=== PATIENT | female | born 1945 | race American Indian/Alaskan Native ===

== ENCOUNTER 2018-12-13 14:02 | Inpatient (IN) | payer MEDICARE ==
--- NOTE | 2018-12-13 14:38 | Event Note ---
ED Screening Note ED Screening Note: pt presents with generalized abd pain that began two months +constipation, had a very small BM today difficulty swallowing for two months saw GI and they want to have a EGD/colonscopy PMHx DM, HTN, COPD, PAD This initial assessment/diagnostic orders/clinical plan/treatment(s) is/are subject to change based on patients health status, clinical progression and re- assessment by fellow clinical providers in the ED. Further treatment and workup at subsequent clinical providers discretion. Patient/guardian urged not to elope from the ED as their condition may be serious if not clinically assessed and managed. Initial orders include: labs, XR abd, UA
--- NOTE | 2018-12-13 15:11 | XRay Report ---
ABDOMEN FLAT AND UPRIGHT HISTORY: constipation, generalized abd pain COMPARISON: None. TECHNIQUE: Supine and upright radiographs of the abdomen obtained. FINDINGS: Bowel: Nonobstructive bowel pattern. No abnormal air-fluid level. No free intraperitoneal air. Calcifications: No significant abnormal calcifications. Osseous Structures: No significant osseous abnormality. Additional findings: Pelvic phleboliths. Bilateral femoral artery stents. IMPRESSION: 1. No acute abnormality. Signer Name: Albert Lincoln MD Signed: 12/13/2018 3:07 PM Workstation Name: [id number]
[2018-12-13 15:52] LABS: Basophils # (Auto) 0.1 K/mm3 (0.0-0.1); Basophils % (Auto) 0.8 % (0.0-1.8); Eosinophils # (Auto) 0.1 K/mm3 (0.0-0.4); Eosinophils % (Auto) 0.9 % (0.0-4.3); Hematocrit 43.4 % (30.3-42.9); Hemoglobin 14.4 gm/dl (10.1-14.3); Lymphocytes # (Auto) 2.8 K/mm3 (1.2-5.4); Lymphocytes % (Auto) 29.3 % (13.4-35.0); Mean Corpuscular HGB Conc 33 % (30-34); Mean Corpuscular Volume 84 fl (79-97); Monocytes # (Auto) 0.5 K/mm3 (0.0-0.8); Monocytes % (Auto) 5.6 % (0.0-7.3); Platelet Count 180 K/mm3 (140-440); Red Blood Count 5.14 M/mm3 (3.65-5.03); Red Cell Distribution Width 13.6 % (13.2-15.2)
[2018-12-13 16:16] LABS: Alanine Aminotransferase 16 units/L (7-56); Albumin 3.5 g/dL (3.9-5); BUN/Creatinine Ratio 10; Blood Urea Nitrogen 9 mg/dL (7-17); Calcium 9.3 mg/dL (8.4-10.2); Hemolysis Index 4
[2018-12-13] MEDS ORDERED: K-DUR PO ONE (17:12)
--- NOTE | 2018-12-13 17:16 | Emergency Department Report ---
ED Abdominal Pain HPI - General Chief Complaint: Abdominal Pain Stated Complaint: ABDOMINAL PAIN/VOMITING Time Seen by Provider: 12/13/18 14:34 Source: patient Mode of arrival: Ambulatory Limitations: No Limitations - History of Present Illness Initial Comments: Patient is 73 years old female, presented to the ER complaining of diffuse abdominal pain for the last 2 month. Patient accompanied by her daughter who is giving most of the history. She stated that her mother lost approximately 35 pounds in the last few weeks. She stated that she is having difficulty in swallowing and she has significant history of nausea and vomiting. Patient daughter stated that she has an appointment with Dr. Alvares. Patient stated that the last time she had a bowel movement was 7 days ago. Patient denied any fever or chills. No chest pain or shortness of breath. MD Complaint: abdominal pain -: month(s) Location: diffuse Radiation: none Migration to: no migration Severity: moderate Quality: cramping, fullness - Related Data Allergies Allergy/AdvReac Type Severity Reaction Status Date / Time No Known Allergies Allergy Verified 12/13/18 18:21 ED Review of Systems ROS: Stated complaint: ABDOMINAL PAIN/VOMITING Other details as noted in HPI Comment: All other systems reviewed and negative Constitutional: denies: chills, fever Respiratory: denies: cough, shortness of breath, SOB with exertion Cardiovascular: denies: chest pain, palpitations Gastrointestinal: abdominal pain, nausea, vomiting, constipation. denies: diarrhea, hematemesis, melena, hematochezia Genitourinary: denies: urgency, dysuria Neurological: denies: headache, weakness, numbness, paresthesias, confusion ED Past Medical Hx - Past Medical History Previous Medical History?: Yes Hx Hypertension: Yes Hx Diabetes: Yes Hx Deep Vein Thrombosis: Yes Hx COPD: Yes Additional medical history: cyst on kidney. TIA - Surgical History Past Surgical History?: Yes Additional Surgical History: stents placed in leg - Social History Smoking Status: Never Smoker Substance Use Type: None ED Physical Exam - General Limitations: No Limitations General appearance: alert, in no apparent distress - Head Head exam: Present: atraumatic, normocephalic, normal inspection - Eye Eye exam: Present: normal appearance, PERRL - ENT ENT exam: Present: normal exam, normal orophraynx, mucous membranes moist - Neck Neck exam: Present: normal inspection, full ROM. Absent: tenderness, meningismus, lymphadenopathy, thyromegaly - Respiratory Respiratory exam: Present: normal lung sounds bilaterally - Cardiovascular Cardiovascular Exam: Present: regular rate, normal rhythm, normal heart sounds - GI/Abdominal GI/Abdominal exam: Present: soft, tenderness (diffuse tenderness), normal bowel sounds. Absent: distended, guarding, rebound, rigid, organomegaly, mass, bruit, pulsatile mass, hernia - Extremities Exam Extremities exam: Present: normal inspection, full ROM, normal capillary refill - Back Exam Back exam: Present: normal inspection, full ROM. Absent: tenderness, CVA tenderness (R), CVA tenderness (L), muscle spasm, paraspinal tenderness, vertebral tenderness - Neurological Exam Neurological exam: Present: alert, oriented X3, CN II-XII intact, normal gait - Psychiatric Psychiatric exam: Present: normal mood - Skin Skin exam: Present: warm, intact, normal color ED Course Vital Signs 12/13/18 12/13/18 12/13/18 14:33 17:06 18:45 Temperature 98.4 F Pulse Rate 82 74 74 Respiratory 20 16 16 Rate Blood Pressure 95/56 Blood Pressure 168/61 208/96 [Left] O2 Sat by Pulse 100 97 96 Oximetry 12/13/18 19:04 Temperature Pulse Rate 67 Respiratory Rate Blood Pressure 211/80 Blood Pressure [Left] O2 Sat by Pulse Oximetry ED Medical Decision Making - Lab Data Result diagrams: 12/13/18 15:31 12/13/18 15:31 - Radiology Data Radiology results: report reviewed - Medical Decision Making Patient is 73 years old female, presented to the ER complaining of diffuse abdominal pain for the last 2 month. Patient accompanied by her daughter who is giving most of the history. She stated that her mother lost approximately 35 pounds in the last few weeks. She stated that she is having difficulty in swallowing and she has significant history of nausea and vomiting. Patient daughter stated that she has an appointment with Dr. Alvares. Patient stated that the last time she had a bowel movement was 7 days ago. Patient denied any fever or chills. No chest pain or shortness of breath. Patient found to be hypokalemic with a potassium of 2.6. Rest of the labs are unremarkable. CT abdomen and pelvis is unremarkable for acute finding. I discussed the patient is Dr. Kennedy who advised to admit the patient to the hospital for possible upper GI endoscopy in the morning. I discussed the patient is Dr. Murphy, he agreed to admit the patient to medical service. Critical care attestation.: If time is entered above; I have spent that time in minutes in the direct care of this critically ill patient, excluding procedure time. ED Disposition Clinical Impression: Abdominal pain, Vomiting, Dysphagia, Hypokalemia, UTI (urinary tract infection) Disposition: OP ADMIT IP TO THIS HOSP Is pt being admited?: Yes Condition: Stable Instructions: Abdominal Pain (ED) Referrals: DRAGAN PAPPSA MD [Primary Care Provider] - 3-5 Days
[2018-12-13 17:24] LABS: Amorphous Crystals,Urine Few; Bilirubin,Urine NEG (Negative); Blood,Urine SM (Negative); Color,Urine Yellow (Yellow); Protein,Urine <15 mg/dL mg/dL (Negative); Urobilinogen,Urine < 2.0 mg/dL (<2.0)
[2018-12-13] MEDS: KCL 10MEQ/100ML 10 MEQ/100 ML BAG IV SCH ×2 (18:20→21:20)
[2018-12-13] MEDS ORDERED: APRESOLINE IV ONE (18:55)
[2018-12-13] MEDS ORDERED: NACL 0.9% 250ML 250 ML ONE (19:31)
[2018-12-13] MEDS ORDERED: NACL 0.9% 250ML 250 ML IV ONE (19:35)
--- NOTE | 2018-12-13 20:12 | Cat Scan Report ---
CT ABDOMEN AND PELVIS WITH IV CONTRAST INDICATION: Abdominal pain, nausea and vomiting. COMPARISON: No prior CTs. TECHNIQUE: All CT scans at this facility use dose modulation, automated exposure control, iterative reconstructi on or weight based dosing, when appropriate, to reduce radiation dose to as low as reasonably achieva ble. FINDINGS: Lung Bases: Clear. Skeletal System: No acute abnormality. Degenerative changes are noted within the pelvis and througho ut the lower thoracic and lumbar spine. ABDOMEN: Liver: There is a punctate hypodensity in the lateral right hepatic lobe on axial image 25. This is t oo small to characterize but likely a cyst. The liver is otherwise unremarkable. Gallbladder: Sludge and small stones are seen in the gallbladder fundus. The gallbladder is otherwise unremarkable. Bile Ducts: Normal. Pancreas: Normal. Spleen: There are several peripheral hypodensities in the spleen, some of these are somewhat wedge-sh aped. These may be small chronic infarcts. Adrenals: Normal. Right Kidney: The right kidney is markedly atrophic. This appears chronic. Left Kidney: There is a simple cyst in the medial posterior cortex. There appears to be mild compensa tory hypertrophy of the left kidney. There are a few punctate cortical cysts of the upper and lower p oles. Stomach and Bowel: Normal. Lymph Nodes: No significant adenopathy. Aorta: There is advanced atherosclerotic calcification. Additional Findings: Advanced atherosclerotic calcification is seen within the renal and mesenteric a rterial trees. PELVIS: Colon: Normal aside from minimal right-sided diverticulosis. Urinary Bladder and Distal Ureters: Normal. Appendix: Removed. Lymph Nodes: No significant adenopathy. Additional Findings: Advanced atherosclerotic calcification is seen in the bilateral common and exter nal iliac arteries. IMPRESSION: 1. No acute process in the abdomen or pelvis. 2. Incidental findings, as above. Signer Name: Samuel Fajardo MD Signed: 12/13/2018 8:07 PM Workstation Name: [id number]
[2018-12-13] MEDS ORDERED: ROCEPHIN/NS 1 GM/50 ML 1 GM/50 ML BAG IV ONE (20:14)
[2018-12-13] MEDS ORDERED: ZOFRAN IV ONE (20:27)
[2018-12-13] MEDS ORDERED: MORPHINE IV PRN (22:34)
[2018-12-13] MEDS ORDERED: SODIUM CHLORIDE FLUSH SYRINGE 10 ML IV PRN (22:34)
[2018-12-13] MEDS ORDERED: TYLENOL PO PRN (22:34)
[2018-12-13] MEDS ORDERED: ZOFRAN IV PRN (22:34)
[2018-12-13] MEDS ORDERED: DILAUDID IV PRN (22:35)
[2018-12-13] MEDS ORDERED: FLEET PR ONE (22:56)
[2018-12-13] MEDS ORDERED: NACL 0.9% 1000 ML 1,000 ML IV SCH (23:00)
[2018-12-14] MEDS ORDERED: D50W (25GM) Syringe IV PRN (00:08)
[2018-12-14] MEDS ORDERED: ZOFRAN ONE (00:23)
--- NOTE | 2018-12-14 00:24 | Event Note ---
Date: 12/14/18 73F who pw abdominal pain x 2 months, 35 pounds weight loss, anorexia, dysphagia, and n/v for past few days, she is also c/o constipation, last BM was 7 days ago PMH; htn, dm, hx of dvt, copd, kidney cyst, TIA, hx of PAD sp stent in LE CT abdomen and pelvis; No acute process in the abdomen or pelvis. * GI; anorexia, dysphagia; unintentional weight loss, N/v, abdominal pain; pain meds, anti-emetics, GI to see, NPO for EGD in am, SS consult * UTI; iv abx, fup urine cx * severe hypokalemia, cont IV k in fluids, check mg * htn urgency, clonidine patch, hyradralazine iv prn * DM; SSI * copd, chronic and stable, cont home meds, nebs prn
[2018-12-14] MEDS ORDERED: PROVENTIL IH PRN (00:25)
[2018-12-14] MEDS: APRESOLINE IV PRN (00:56)
[2018-12-14] MEDS ORDERED: REGLAN IV PRN (01:03)
[2018-12-14] MEDS ORDERED: ZOFRAN IV PRN (01:04)
--- NOTE | 2018-12-14 01:05 | History and Physical Report ---
History of Present Illness Date of examination: 12/13/18 Date of admission: 12/13/2018 Chief complaint: Constipation and abdominal pain History of present illness: 73 -year-old -[place] female with history of hypertension, diabetes 2, COPD, chronic constipation who presents to [facility] ED with c/o of diffuse abdominal pain and intermittent constipation for the last 2 months. She also complains of difficulty swallowing, nausea and vomiting. Patient stated that the last time she had a bowel movement was 7 days. Her bowel movements are very small. She describes it as "small pieces of stool". She admits to having a poor appetite. According to patient's daughter her mother has lost approximately 35 pounds in the last 2 months. Patient daughter stated her mother has an appointment with Dr. Alvares ([facility]) scheduled for sometime in late January. Denies: Fever, dysuria, hematuria, cough, diarrhea, hematochezia, or hemoptysis Past History Past Medical History: CAD, diabetes, DVT (on Eliquis ), hypertension Past Surgical History: Other (stents placed in leg) Social history: lives with family Family history: no significant family history Medications and Allergies Allergies Allergy/AdvReac Type Severity Reaction Status Date / Time No Known Allergies Allergy Verified 12/13/18 18:21 Home Medications Medication Instructions Recorded Confirmed Last Taken Type Docusate Sodium [Colace] 100 mg PO DAILY PRN 12/13/18 12/13/18 Unknown History Fluticasone/Vilanterol [Breo 1 each IH DAILY 12/13/18 12/13/18 Unknown History Ellipta 100-25 Mcg INH] Furosemide [Lasix TAB] 40 mg PO QDAY 12/13/18 12/13/18 Unknown History Gabapentin [Neurontin] 300 mg PO TID 12/13/18 12/13/18 Unknown History Metoprolol Strange/Hydrochlorothiaz 1 each PO DAILY 12/13/18 12/13/18 Unknown History [Metoprolol ER-Hctz 50-12.5 mg] Montelukast Sodium 10 mg PO DAILY 12/13/18 12/13/18 Unknown History Pantoprazole Sodium [Protonix] 40 mg PO DAILY 12/13/18 12/13/18 Unknown History Symbicort 160-4.5 Mcg Inhaler 160 mcg INHALATION BID 12/13/18 12/14/18 Unknown History cloNIDine-TTS PATCH [Catapres-Tts 1 patch TD Q7D 12/13/18 12/13/18 Unknown History 0.2mg Patch] glipiZIDE [Glucotrol] 10 mg PO QDAY 12/13/18 12/13/18 Unknown History Albuterol Sulfate [Proair 90 mcg INHALATION Q4HR PRN 12/14/18 12/14/18 Unknown History Respiclick] Amitriptyline [Elavil] 50 mg PO HS 12/14/18 12/14/18 Unknown History Apixaban [Eliquis] 2.5 mg PO DAILY 12/14/18 12/14/18 Unknown History Arformoterol Nebu [Brovana Nebu] 15 mcg INHALATION BID 12/14/18 12/14/18 Unknown History AtorvaSTATin [Lipitor] 20 mg PO DAILY 12/14/18 12/14/18 Unknown History amLODIPine [Norvasc] 10 mg PO DAILY 12/14/18 12/14/18 Unknown History Active Meds: Active Medications Acetaminophen (Tylenol) 650 mg PO Q4H PRN PRN Reason: Pain MILD(1-3)/Fever >100.5/TURK Albuterol (Proventil) 2.5 mg IH Q4HRT PRN PRN Reason: Shortness Of Breath Arformoterol Tartrate (Brovana Nebu) 15 mcg IH Q12HRT MEGAN Budesonide (Pulmicort) 0.5 mg IH Q12HRT MEGAN Clonidine HCl (Catapres-Tts Patch) 0.2 mg TD Fr MEGAN Dextrose (D50w (25gm) Syringe) 50 ml IV PRN PRN PRN Reason: Hypoglycemia Enoxaparin Sodium (Lovenox) 40 mg SUB-Q QDAY MEGAN Hydralazine HCl (Apresoline) 10 mg IV Q4HR PRN PRN Reason: BP >160/100 Last Admin: 12/14/18 00:56 Dose: 10 mg Documented by: Hydromorphone HCl (Dilaudid) 0.5 mg IV Q3H PRN PRN Reason: Pain , Severe (7-10) Stop: 12/14/18 23:59 Last Admin: 12/14/18 00:41 Dose: 0.5 mg Documented by: Potassium Chloride 20 meq/ (Sodium Chloride) 1,010 mls @ 75 mls/hr IV DIRECT MEGAN Stop: 12/14/18 12:00 Ceftriaxone Sodium (Rocephin/Ns 1 Gm/50 Ml) 1 gm in 50 mls @ 100 mls/hr IV Q24HR MEGAN; Protocol Insulin Human Lispro (Humalog) 0 unit SUB-Q Q6HR MEGAN; Protocol Morphine Sulfate (Morphine) 2 mg IV Q4H PRN PRN Reason: Pain, Moderate (4-6) Stop: 12/14/18 23:59 Ondansetron HCl (Zofran) 4 mg IV Q8H PRN PRN Reason: Nausea And Vomiting Last Admin: 12/14/18 00:30 Dose: 4 mg Documented by: Sodium Chloride (Sodium Chloride Flush Syringe 10 Ml) 10 ml IV BID MEGAN Sodium Chloride (Sodium Chloride Flush Syringe 10 Ml) 10 ml IV PRN PRN PRN Reason: LINE FLUSH Review of Systems All systems: negative (reviewed and no additional remarkable complaints except as noted below) Gastrointestinal: abdominal pain, constipation Exam - Physical Exam Narrative exam: Physical exam General appearance: Present: No acute distress, alert and oriented 3, well- developed, -[place] older adult female - EENT Eyes: Present: PERRL, EOM intact ENT: hearing intact, poor dentition - Neck Neck: Present: supple, normal ROM - Respiratory Respiratory effort: Non-labored Respiratory: bilateral: diminished (bases) - Cardiovascular Heart rate: 82 (bpm) Rhythm: SR Heart Sounds: Present: S1 & S2. Absent: rub, click - Extremities Extremities: no ischemia, pulses intact, - Peripheral Assessment Peripheral Pulses: within normal limits - Abdominal General gastrointestinal: soft, mild diffuse tenderness, normal bowel sounds - Integumentary Integumentary: Present: warm, dry - Musculoskeletal Musculoskeletal: generalized weakness -Neurological Neurological: CN II-XII - Psychiatric Psychiatric: cooperative - Constitutional Vitals: Temp Pulse Resp BP Pulse Ox 97.5 F L 97 H 20 186/79 99 12/14/18 00:39 12/13/18 23:00 12/14/18 00:39 12/14/18 00:56 12/14/18 00:00 Results - Labs CBC & Chem 7: 12/13/18 15:31 12/13/18 15:31 Labs: Laboratory Last Values WBC 9.5 K/mm3 (4.5-11.0) 12/13/18 15:31 RBC 5.14 M/mm3 (3.65-5.03) H 12/13/18 15:31 Hgb 14.4 gm/dl (10.1-14.3) H 12/13/18 15:31 Hct 43.4 % (30.3-42.9) H 12/13/18 15:31 MCV 84 fl (79-97) 12/13/18 15:31 MCH 28 pg (28-32) 12/13/18 15:31 MCHC 33 % (30-34) 12/13/18 15:31 RDW 13.6 % (13.2-15.2) 12/13/18 15:31 Plt Count 180 K/mm3 (140-440) 12/13/18 15:31 Lymph % (Auto) 29.3 % (13.4-35.0) 12/13/18 15:31 Dixie % (Auto) 5.6 % (0.0-7.3) 12/13/18 15: Eos % (Auto) 0.9 % (0.0-4.3) 12/13/18 15:31 Baso % (Auto) 0.8 % (0.0-1.8) 12/13/18 15: Lymph # 2.8 K/mm3 (1.2-5.4) 12/13/18 15: Dixie # 0.5 K/mm3 (0.0-0.8) 12/13/18 15:31 Eos # 0.1 K/mm3 (0.0-0.4) 12/13/18 15: Baso # 0.1 K/mm3 (0.0-0.1) 12/13/18 15:31 Seg Neutrophils % 63.4 % (40.0-70.0) 12/13/18 15: Seg Neutrophils # 6.0 K/mm3 (1.8-7.7) 12/13/18 15:31 Sodium 141 mmol/L (137-145) 12/13/18 15:31 Potassium 2.6 mmol/L (3.6-5.0) L* 12/13/18 15:31 Chloride 95.1 mmol/L (98-107) L 12/13/18 15:31 Carbon Dioxide 32 mmol/L (22-30) H 12/13/18 15:31 17 mmol/L 12/13/18 15:31 BUN 9 mg/dL (7-17) 12/13/18 15:31 0.9 mg/dL (0.7-1.2) 12/13/18 15:31 Estimated GFR > 60 ml/min 12/13/18 15:31 10 % 12/13/18 15:31 Glucose 128 mg/dL (65-100) H 12/13/18 15:31 Calcium 9.3 mg/dL (8.4-10.2) 12/13/18 15:31 Magnesium 2.00 mg/dL (1.7-2.3) 12/13/18 15:31 0.90 mg/dL (0.1-1.2) 12/13/18 15:31 AST 26 units/L (5-40) 12/13/18 15:31 ALT 16 units/L (7-56) 12/13/18 15:31 128 units/L (35-129) 12/13/18 15:31 7.5 g/dL (6.3-8.2) 12/13/18 15:31 3.5 g/dL (3.9-5) L 12/13/18 15:31 0.9 % 12/13/18 15:31 34 units/L (13-60) 12/13/18 15:31 Yellow (Yellow) 12/13/18 17:01 Cloudy (Clear) 12/13/18 17:01 7.0 (5.0-7.0) 12/13/18 17:01 Ur Specific Dobbins 1.009 (1.003-1.030) 12/13/18 17:01 <15 mg/dl mg/dL (Negative) 12/13/18 17:01 Neg mg/dL (Negative) 12/13/18 17:01 Neg mg/dL (Negative) 12/13/18 17:01 Sm (Negative) 12/13/18 17:01 Neg (Negative) 12/13/18 17:01 Neg (Negative) 12/13/18 17:01 < 2.0 mg/dL (<2.0) 12/13/18 17:01 Ur Leukocyte Esterase Lg (Negative) 12/13/18 17:01 128.0 /HPF (0.0-6.0) H 12/13/18 17:01 11.0 /HPF (0.0-6.0) 12/13/18 17:01 U Epithel Cells (Auto) 10.0 /HPF (0-13.0) 12/13/18 17:01 Amorphous Crystals Few 12/13/18 17:01 - Imaging and Cardiology Imaging and Cardiology: CT Abd/ Pelvis: ABDOMEN: Liver: There is a punctate hypodensity in the lateral right hepatic lobe on axial image 25. This is too small to characterize but likely a cyst. The liver is otherwise unremarkable. Gallbladder: Sludge and small stones are seen in the gallbladder fundus. The gallbladder is otherwise unremarkable. Bile Ducts: Normal. Pancreas: Normal. Spleen: There are several peripheral hypodensities in the spleen, some of these are somewhat wedge-shaped. These may be small chronic infarcts. Adrenals: Normal. Right Kidney: The right kidney is markedly atrophic. This appears chronic. Left Kidney: There is a simple cyst in the medial posterior cortex. There appears to be mild compensatory hypertrophy o f the left kidney. There are a few punctate cortical cysts of the upper and lower poles. Stomach and Bowel: Normal. Lymph Nodes: No significant adenopathy. Aorta: There is advanced atherosclerotic calcification. Additional Findings: Advanced atherosclerotic calcification is seen within the renal and mesenteric arterial trees. PELVIS: Colon: Normal aside from minimal right-sided diverticulosis. Urinary Bladder and Distal Ureters: Normal. Appendix: Removed. Lymph Nodes: No significant adenopathy. Additional Findings: Advanced atherosclerotic calcification is seen in the bilateral common and external iliac arteries. IMPRESSION: 1. No acute process in the abdomen or pelvis. 2. Incidental findings, as above. Abd XR: FINDINGS: Bowel: Nonobstructive bowel pattern. No abnormal air-fluid level. No free intraperitoneal air. Calcifications: No significant abnormal calcifications. Osseous Structures: No significant osseous abnormality. Additional findings: Pelvic phleboliths. Bilateral femoral artery stents. IMPRESSION: 1. No acute abnormality. Assessment and Plan Assessment and plan: 73 -year-old -[place] female with history of hypertension, diabetes 2, COPD, chronic constipation who presents to [facility] ED with c/o of diffuse abdominal pain and intermittent constipation for the last [address] abdomen and pelvis revealed punctate hypodensity in the lateral right hepatic lobe, several peripheral hypodensities in the spleen, some of these are somewhat wedge-shaped, right kidney is markedly atrophic, advanced atherosclerotic calcification is seen within the renal and mesenteric arterial trees. GI consulted. Will admit to [facility] unit for further evaluation and treatment. Urinary tract infection Acute Abdominal Pain Chronic Constipation Hypokalemia Hypertension DM2 COPD ?? Dysphasia Plan: Continue supportive care Continuous remote telemetry monitoring Nothing by mouth Ordered Fleet enema GI consulted and following with plans for EGD in am Urine culture pending Urinalysis shows urine WBC 128 Start 1 g every 24 hours Monitor electrolytes, and replete as needed Hypokalemic at 2.6; received potassium replacement, continue to monitor POC BG monitoring SSI coverge Monitor BP Resume clonidine patch Hold all oral antihypertensive meds, resume when pt is no longer NPO Hold Eliquis for now- resume post EDG Albuterol when necessary Resume Brovana Speech consult pending post EDG DVT PPX on lovenox Advance Directives: No VTE prophylaxis?: Chemical Plan of care discussed with patient/family: Yes
[2018-12-14] MEDS: NACL 0.9% 1000 ML 1,000 ML with KCL 20 MEQ IV SCH ×2 (01:10→02:28)
[2018-12-14] MEDS: CATAPRES-TTS PATCH TD SCH (04:26)
[2018-12-14] MEDS: HumaLOG SUB-Q SCH ×2 (06:38→12:00)
[2018-12-14 08:33] LABS: BUN/Creatinine Ratio 10; Blood Urea Nitrogen 7 mg/dL (7-17); Calcium 9.4 mg/dL (8.4-10.2); Hemolysis Index 5
--- NOTE | 2018-12-14 09:53 | Gastroenterology Consultation ---
History of Present Illness - Reason for Consult Consult date: 12/14/18 dysphagia Requesting physician: DINO MORLEY - History of Present Illness Patient is a 73 y/o female with PMH of HTN, DM, COPD, DVT (on eliquis), TID, and PAD (s/p stent in LE) who presented to ED with multiple GI complaints to include diffuse abd pain, constipation, N/V, dysphagia, and significant wt loss of ~40 since October of this year to which GI has been consulted. Abd CT w/o acute proce ss. Currently being treated for UTI. Patient is previously known to our service with last OV 11/30/18 for similar symptoms with outpatient EGD/colonoscopy pending cardiac clearance, which was obtained by Dr. Mckenna on 12/07/18. This morning patient was resting in bed in mild distress due to continued N/V. No active signs of bleeding. Denies fever, CP, SOB, or diarrhea. Last colonoscopy in 2016 unremarkable. Past History Past Medical History: other (as per HPI) Past Surgical History: Other (stents placed in leg) Social history: lives with family Family history: no significant family history Medications and Allergies Allergies Allergy/AdvReac Type Severity Reaction Status Date / Time No Known Allergies Allergy Verified 12/13/18 18:21 Home Medications Medication Instructions Recorded Confirmed Last Taken Type Docusate Sodium [Colace] 100 mg PO DAILY PRN 12/13/18 12/13/18 Unknown History Fluticasone/Vilanterol [Breo 1 each IH DAILY 12/13/18 12/13/18 Unknown History Ellipta 100-25 Mcg INH] Furosemide [Lasix TAB] 40 mg PO QDAY 12/13/18 12/13/18 Unknown History Gabapentin [Neurontin] 300 mg PO TID 12/13/18 12/13/18 Unknown History Metoprolol Strange/Hydrochlorothiaz 1 each PO DAILY 12/13/18 12/13/18 Unknown History [Metoprolol ER-Hctz 50-12.5 mg] Montelukast Sodium 10 mg PO DAILY 12/13/18 12/13/18 Unknown History Pantoprazole Sodium [Protonix] 40 mg PO DAILY 12/13/18 12/13/18 Unknown History Symbicort 160-4.5 Mcg Inhaler 160 mcg INHALATION BID 12/13/18 12/14/18 Unknown History cloNIDine-TTS PATCH [Catapres-Tts 1 patch TD Q7D 12/13/18 12/13/18 Unknown History 0.2mg Patch] glipiZIDE [Glucotrol] 10 mg PO QDAY 12/13/18 12/13/18 Unknown History Albuterol Sulfate [Proair 90 mcg INHALATION Q4HR PRN 12/14/18 12/14/18 Unknown History Respiclick] Amitriptyline [Elavil] 50 mg PO HS 12/14/18 12/14/18 Unknown History Apixaban [Eliquis] 2.5 mg PO DAILY 12/14/18 12/14/18 Unknown History Arformoterol Nebu [Brovana Nebu] 15 mcg INHALATION BID 12/14/18 12/14/18 Unknown History AtorvaSTATin [Lipitor] 20 mg PO DAILY 12/14/18 12/14/18 Unknown History amLODIPine [Norvasc] 10 mg PO DAILY 12/14/18 12/14/18 Unknown History Active Meds: Active Medications Acetaminophen (Tylenol) 650 mg PO Q4H PRN PRN Reason: Pain MILD(1-3)/Fever >100.5/TURK Albuterol (Proventil) 2.5 mg IH Q4HRT PRN PRN Reason: Shortness Of Breath Arformoterol Tartrate (Brovana Nebu) 15 mcg IH Q12HRT MEGAN Budesonide (Pulmicort) 0.5 mg IH Q12HRT MEGAN Clonidine HCl (Catapres-Tts Patch) 0.2 mg TD Fr [facility] Last Admin: 12/14/18 04:26 Dose: Not Given Documented by: Dextrose (D50w (25gm) Syringe) 50 ml IV PRN PRN PRN Reason: Hypoglycemia Enoxaparin Sodium (Lovenox) 40 mg SUB-Q QDAY MEGAN Hydralazine HCl (Apresoline) 10 mg IV Q4HR PRN PRN Reason: BP >160/100 Last Admin: 12/14/18 00:56 Dose: 10 mg Documented by: Hydromorphone HCl (Dilaudid) 0.5 mg IV Q3H PRN PRN Reason: Pain , Severe (7-10) Stop: 12/14/18 23:59 Last Admin: 12/14/18 00:41 Dose: 0.5 mg Documented by: Potassium Chloride 20 meq/ (Sodium Chloride) 1,010 mls @ 75 mls/hr IV DIRECT MEGAN Stop: 12/14/18 12:00 Last Admin: 12/14/18 02:28 Dose: 75 mls/hr Documented by: Ceftriaxone Sodium (Rocephin/Ns 1 Gm/50 Ml) 1 gm in 50 mls @ 100 mls/hr IV Q24HR [facility]; Protocol Potassium Chloride (Kcl 20meq/100ml) 20 meq in 100 mls @ 100 mls/hr IV Q1H [facility] Stop: 12/14/18 11:59 Insulin Human Lispro (Humalog) 0 unit SUB-Q Q6HR MEGAN; Protocol Last Admin: 12/14/18 06:38 Dose: 1 unit Documented by: Metoclopramide HCl (Reglan) 10 mg IV Q6H PRN PRN Reason: Nausea And Vomiting Last Admin: 12/14/18 02:29 Dose: 10 mg Documented by: Morphine Sulfate (Morphine) 2 mg IV Q4H PRN PRN Reason: Pain, Moderate (4-6) Stop: 12/14/18 23:59 Ondansetron HCl (Zofran) 4 mg IV Q4H PRN PRN Reason: Nausea And Vomiting Pantoprazole Sodium (Protonix) 40 mg IV QDAY [facility] Sodium Chloride (Sodium Chloride Flush Syringe 10 Ml) 10 ml IV BID [facility] Sodium Chloride (Sodium Chloride Flush Syringe 10 Ml) 10 ml IV PRN PRN PRN Reason: LINE FLUSH medications reviewed/updated as required Review of Systems - Review of Systems All systems: negative Constitutional: weight loss, poor appetite Gastrointestinal: abdominal pain, nausea, vomiting, constipation, other (dys phagia) Exam - Constitutional Vital Signs: Temp Pulse Resp BP Pulse Ox 98.4 F 102 H 18 187/76 96 12/14/18 07:48 12/14/18 07:48 12/14/18 07:48 12/14/18 07:48 12/14/18 07:48 General appearance: no acute distress, obese - EENT Eyes: PERRL, EOM intact ENT: hearing intact - Respiratory Respiratory effort: normal Respiratory: bilateral: diminished - Cardiovascular Rhythm: other (tachycardia) - Gastrointestinal General gastrointestinal: Present: soft, non-tender, non-distended, normal bowel sounds, other (obese) - Neurologic Neurological: alert and oriented x3 - Labs CBC & Chem 7: 12/13/18 15:31 12/14/18 08:00 Lab Results: Laboratory Results - last 24 hr 12/13/18 12/13/18 12/13/18 15:31 15:31 15:31 WBC 9.5 RBC 5.14 H Hgb 14.4 H Hct 43.4 H MCV 84 MCH 28 MCHC 33 RDW 13.6 Plt Count 180 Lymph % (Auto) 29.3 [place] % (Auto) 5.6 Eos % (Auto) 0.9 Baso % (Auto) 0.8 Lymph # 2.8 [place] # 0.5 Eos # 0.1 Baso # 0.1 Seg Neutrophils % 63.4 Seg Neutrophils # 6.0 Sodium 141 Potassium 2.6 L* Chloride 95.1 L Carbon Dioxide 32 H Anion Gap 17 BUN 9 Creatinine 0.9 Estimated GFR > 60 BUN/Creatinine Ratio 10 Glucose 128 H POC Glucose Hemoglobin A1c Calcium 9.3 Magnesium 2.00 Total Bilirubin 0.90 AST 26 ALT 16 Alkaline Phosphatase 128 Total Protein 7.5 Albumin 3.5 L Albumin/Globulin Ratio 0.9 Lipase 34 Urine Color Urine Turbidity Urine pH Ur Specific [place] Urine Protein Urine Glucose (UA) Urine Ketones Urine Blood Urine Nitrite Urine Bilirubin Urine Urobilinogen Ur Leukocyte Esterase Urine WBC (Auto) Urine RBC (Auto) U Epithel Cells (Auto) Amorphous Crystals 12/13/18 12/14/18 12/14/18 17:01 05:01 06:41 WBC RBC Hgb Hct MCV MCH MCHC RDW Plt Count Lymph % (Auto) [place] % (Auto) Eos % (Auto) Baso % (Auto) Lymph # [place] # Eos # Baso # Seg Neutrophils % Seg Neutrophils # Sodium Potassium Chloride Carbon Dioxide Anion Gap BUN Creatinine Estimated GFR BUN/Creatinine Ratio Glucose POC Glucose 166 H Hemoglobin A1c 7.1 H Calcium Magnesium Total Bilirubin AST ALT Alkaline Phosphatase Total Protein Albumin Albumin/Globulin Ratio Lipase Urine Color Yellow Urine Turbidity Cloudy Urine pH 7.0 Ur Specific [place] 1.009 Urine Protein <15 mg/dl Urine Glucose (UA) Neg Urine Ketones Neg Urine Blood Sm Urine Nitrite Neg Urine Bilirubin Neg Urine Urobilinogen < 2.0 Ur Leukocyte Esterase Lg Urine WBC (Auto) 128.0 H Urine RBC (Auto) 11.0 U Epithel Cells (Auto) 10.0 Amorphous Crystals Few 12/14/18 08:00 WBC RBC Hgb Hct MCV MCH MCHC RDW Plt Count Lymph % (Auto) [place] % (Auto) Eos % (Auto) Baso % (Auto) Lymph # [place] # Eos # Baso # Seg Neutrophils % Seg Neutrophils # Sodium 143 Potassium 3.1 L Chloride 99.2 Carbon Dioxide 26 Anion Gap 21 BUN 7 Creatinine 0.7 Estimated GFR > 60 BUN/Creatinine Ratio 10 Glucose 174 H POC Glucose Hemoglobin A1c Calcium 9.4 Magnesium Total Bilirubin AST ALT Alkaline Phosphatase Total Protein Albumin Albumin/Globulin Ratio Lipase Urine Color Urine Turbidity Urine pH Ur Specific [place] Urine Protein Urine Glucose (UA) Urine Ketones Urine Blood Urine Nitrite Urine Bilirubin Urine Urobilinogen Ur Leukocyte Esterase Urine WBC (Auto) Urine RBC (Auto) U Epithel Cells (Auto) Amorphous Crystals Assessment and Plan 1.dysphagia 2.N/V 3.wt loss 4.abdominal pain 5.constipation -afebrile -WBC WNL -LFTs and lipase WNL -abd CT w/o acute process in abdomen/pelvis -etiology unclear -will schedule for EGD/colonoscopy tomorrow for further evaluation (cardiac shawanda arance by client support professional Dr. Mckenna given as outpatient on 12/07/18) -okay for clears today as tolerated then NPO after MN -okay to place NGT as needed to help facilitate with completion of colon prep given N/V -hold am dose of lovenox -INR in am -optimize glycemic control; limit narcotics for this may exacerbate symptoms -continue PPI, antiemetics, and supportive care -will follow 6.HTN 7.UTI 8.hypokalemia 9.DM 10.COPD 11.H/O TIA 12H/o DVT (Eliquis on hold) 12.H/o PAD (s/p stent)
[2018-12-14] MEDS ORDERED: KCL 20MEQ/100ML 20 MEQ/100 ML BAG IV SCH (10:00)
[2018-12-14] MEDS ORDERED: PROTONIX IV SCH (10:00)
[2018-12-14] MEDS ORDERED: NON-FORMULARY (Fluticasone/Vilanterol [Breo Ellipta 100-25 Mcg Inh] 1 EACH) IH SCH (10:00)
[2018-12-14] MEDS: LOVENOX SUB-Q SCH (10:49)
[2018-12-14] MEDS: ROCEPHIN/NS 1 GM/50 ML 1 GM/50 ML BAG IV SCH (10:50)
[2018-12-14] MEDS ORDERED: KCL 10MEQ/100ML 10 MEQ/100 ML BAG IV SCH (11:00)
[2018-12-14] MEDS ORDERED: K-DUR PO ONE (11:42)
[2018-12-14] MEDS: REGLAN IV SCH ×2 (12:18→20:33)
[2018-12-14] MEDS: SODIUM CHLORIDE FLUSH SYRINGE 10 ML IV SCH ×2 (12:32→22:41)
[2018-12-14] MEDS ORDERED: GOLYTELY PO ONE (12:45)
--- NOTE | 2018-12-14 13:02 | Progress Note ---
Assessment and Plan Assessment and plan: 73 -year-old -Hung[place] female with history of hypertension, diabetes 2, COPD, chronic constipation who presents to [facility] ED with c/o of diffuse abdominal pain and intermittent constipation for the last [address] abdomen and pelvis revealed punctate hypodensity in the lateral right hepatic lobe, several peripheral hypodensities in the spleen, some of these are somewhat wedge-shaped, right kidney is markedly atrophic, advanced atherosclerotic calcification is seen within the renal and mesenteric arterial trees. GI consulted. Will admit to [facility] unit for further evaluation and treatment. Urinary tract infection - patient is on IV ceftriaxone - follow urine culture Acute Abdominal Pain, with persistent N/V - GI consulted, and EGD tomorrow - CT abdomen and pelvis negative - To be on clear liquid diet Chronic Constipation - Symptomatic management Hypokalemia - Repleted Hypertension - Continue clonidine patch DM2 - SSI COPD - Albuterol PRN and brivana DVT prophylaxis; on lovenox Disposition; continue inpatient care. History Interval history: Patient seen and evaluated this morning, patient said she still has nausea and vomiting. Hospitalist Physical - Physical exam Narrative exam: Not in cardiopulmonary distress. The patient is obese. Vital signs as documented. Head exam is unremarkable. No scleral icterus . Neck is without jugular venous distension, thyromegaly, or carotid bruits. Lungs are clear to auscultation. Cardiac exam reveals regular rate and Rhythm. Abdominal exam reveals normal bowel sounds. Extremities are nonedematous and both femoral and pedal pulses are normal. [place] MATE: Alert and oriented 3. No focal weakness. - Constitutional Vitals: Temp Pulse Resp BP Pulse Ox 98.4 F 102 H 18 187/76 96 12/14/18 07:48 12/14/18 07:48 12/14/18 07:48 12/14/18 07:48 12/14/18 07:48 Results - Labs CBC & Chem 7: 12/13/18 15:31 12/14/18 08:00 Labs: Laboratory Last Values WBC 9.5 K/mm3 (4.5-11.0) 12/13/18 15:31 RBC 5.14 M/mm3 (3.65-5.03) H 12/13/18 15:31 Hgb 14.4 gm/dl (10.1-14.3) H 12/13/18 15:31 Hct 43.4 % (30.3-42.9) H 12/13/18 15:31 MCV 84 fl (79-97) 12/13/18 15: MCH 28 pg (28-32) 12/13/18 15:31 MCHC 33 % (30-34) 12/13/18 15:31 RDW 13.6 % (13.2-15.2) 12/13/18 15: Plt Count 180 K/mm3 (140-440) 12/13/18 15: Lymph % (Auto) 29.3 % (13.4-35.0) 12/13/18 15:31 [place] % (Auto) 5.6 % (0.0-7.3) 12/13/18 15: Eos % (Auto) 0.9 % (0.0-4.3) 12/13/18 15: Baso % (Auto) 0.8 % (0.0-1.8) 12/13/18 15: Lymph # 2.8 K/mm3 (1.2-5.4) 12/13/18 15: [place] # 0.5 K/mm3 (0.0-0.8) 12/13/18 15: Eos # 0.1 K/mm3 (0.0-0.4) 12/13/18 15: Baso # 0.1 K/mm3 (0.0-0.1) 12/13/18 15:31 Seg Neutrophils % 63.4 % (40.0-70.0) 12/13/18 15: Seg Neutrophils # 6.0 K/mm3 (1.8-7.7) 12/13/18 15: Sodium 143 mmol/L (137-145) 12/14/18 08:00 Potassium 3.1 mmol/L (3.6-5.0) L 12/14/18 08:00 Chloride 99.2 mmol/L (98-107) 12/14/18 08:00 Carbon Dioxide 26 mmol/L (22-30) 12/14/18 08:00 21 mmol/L 12/14/18 08:00 BUN 7 mg/dL (7-17) 12/14/18 08:00 0.7 mg/dL (0.7-1.2) 12/14/18 08:00 Estimated GFR > 60 ml/min 12/14/18 08:00 10 % 12/14/18 08:00 Glucose 174 mg/dL (65-100) H 12/14/18 08:00 POC Glucose 154 (70-105) H 12/14/18 11:39 7.1 % (4-6) H 12/14/18 05:01 Calcium 9.4 mg/dL (8.4-10.2) 12/14/18 08:00 Magnesium 2.00 mg/dL (1.7-2.3) 12/13/18 15:31 0.90 mg/dL (0.1-1.2) 12/13/18 15:31 AST 26 units/L (5-40) 12/13/18 15:31 ALT 16 units/L (7-56) 12/13/18 15:31 128 units/L (35-129) 12/13/18 15:31 7.5 g/dL (6.3-8.2) 12/13/18 15:31 3.5 g/dL (3.9-5) L 12/13/18 15:31 0.9 % 12/13/18 15:31 34 units/L (13-60) 12/13/18 15:31 Yellow (Yellow) 12/13/18 17:01 Cloudy (Clear) 12/13/18 17:01 7.0 (5.0-7.0) 12/13/18 17:01 Ur Specific [place] 1.009 (1.003-1.030) 12/13/18 17:01 <15 mg/dl mg/dL (Negative) 12/13/18 17:01 Neg mg/dL (Negative) 12/13/18 17:01 Neg mg/dL (Negative) 12/13/18 17:01 Sm (Negative) 12/13/18 17:01 Neg (Negative) 12/13/18 17:01 Neg (Negative) 12/13/18 17:01 < 2.0 mg/dL (<2.0) 12/13/18 17:01 Ur Leukocyte Esterase Lg (Negative) 12/13/18 17:01 128.0 /HPF (0.0-6.0) H 12/13/18 17:01 11.0 /HPF (0.0-6.0) 12/13/18 17:01 U Epithel Cells (Auto) 10.0 /HPF (0-13.0) 12/13/18 17:01 Amorphous Crystals Few 12/13/18 17:01 Active Medications - Current Medications Current Medications: Generic Name Dose Route Start Last Admin Trade Name Freq PRN Reason Stop Dose Admin Acetaminophen 650 mg 12/13/18 22:34 Tylenol PO Q4H PRN Pain MILD(1-3)/Fever >100.5/TURK Albuterol 2.5 mg 12/14/18 00:25 Proventil IH Q4HRT PRN Shortness Of Breath Arformoterol Tartrate 15 mcg 12/14/18 08:00 Brovana Nebu IH Q12HRT MEGAN Budesonide 0.5 mg 12/14/18 08:00 Pulmicort IH Q12HRT MEGAN Clonidine HCl 0.2 mg 12/14/18 01:00 12/14/18 04:26 Catapres-Tts Patch TD Not Given Fr MEGAN Dextrose 50 ml 12/14/18 00:08 D50w (25gm) Syringe IV PRN PRN Hypoglycemia Enoxaparin Sodium 40 mg 12/14/18 10:00 12/14/18 10:49 Lovenox SUB-Q 40 mg QDAY MEGAN Administration Hydralazine HCl 10 mg 12/14/18 00:08 12/14/18 00:56 Apresoline IV 10 mg Q4HR PRN Administration BP >160/100 Hydromorphone HCl 0.5 mg 12/13/18 22:35 12/14/18 00:41 Dilaudid IV 12/14/18 23:59 0.5 mg Q3H PRN Administration Pain , Severe (7-10) Ceftriaxone Sodium 1 gm in 50 mls @ 100 mls/hr 12/14/18 10:00 12/14/18 10:50 Rocephin/Ns 1 Gm/50 Ml IV 100 mls/hr Q24HR MEGAN Administration Protocol Insulin Human Lispro 0 unit 12/14/18 06:00 12/14/18 06:38 Humalog SUB-Q 1 unit Q6HR MEGAN Administration Protocol Metoclopramide HCl 10 mg 12/14/18 01:03 12/14/18 02:29 Reglan IV 10 mg Q6H PRN Administration Nausea And Vomiting Metoclopramide HCl 10 mg 12/14/18 12:00 12/14/18 12:18 Reglan IV 10 mg Q6H MEGAN Administration Morphine Sulfate 2 mg 12/13/18 22:34 Morphine IV 12/14/18 23:59 Q4H PRN Pain, Moderate (4-6) Ondansetron HCl 4 mg 12/14/18 01:04 Zofran IV Q4H PRN Nausea And Vomiting Pantoprazole Sodium 40 mg 12/14/18 10:00 Protonix IV QDAY MEGAN Sodium Chloride 10 ml 12/14/18 10:00 12/14/18 12:32 Sodium Chloride Flush Syringe 10 Ml IV 10 ml BID MEGAN Administration Sodium Chloride 10 ml 12/13/18 22:34 Sodium Chloride Flush Syringe 10 Ml IV PRN PRN LINE FLUSH
[2018-12-14] MEDS: PROTONIX PO SCH (18:00)
--- NOTE | 2018-12-14 19:40 | XRay Report ---
ABDOMEN 1 VIEW(S) INDICATION / CLINICAL INFORMATION: ngt placement verification. COMPARISON: 12/13/2018 FINDINGS: TUBES / LINES: Enteric feeding tube is present. The tip is within the stomach and appears to be in sa tisfactory position. BOWEL GAS PATTERN: Not well seen on this radiograph. FREE AIR / EXTRALUMINAL GAS: None seen. ADDITIONAL FINDINGS: No significant additional findings. IMPRESSION: 1. Interval placement of enteric feeding tube within the stomach, without complication. Signer Name: Ana Monge MD Signed: 12/14/2018 7:36 PM Workstation Name: [email or web address]
[2018-12-14] MEDS: PULMICORT IH SCH ×2 (19:41→20:07)
[2018-12-14] MEDS: BROVANA NEBU IH SCH ×2 (19:41→20:07)
[2018-12-15] MEDS: HumaLOG SUB-Q SCH ×3 (00:31→14:32)
[2018-12-15] MEDS: REGLAN IV SCH ×4 (03:36→19:09)
[2018-12-15] MEDS: APRESOLINE IV PRN ×2 (03:42→20:40)
[2018-12-15 05:40] LABS: Basophils # (Auto) 0.1 K/mm3 (0.0-0.1); Basophils % (Auto) 0.5 % (0.0-1.8); Eosinophils % (Auto) 0.1 % (0.0-4.3); Hematocrit 44.9 % (30.3-42.9); Hemoglobin 14.7 gm/dl (10.1-14.3); Lymphocytes # (Auto) 3.4 K/mm3 (1.2-5.4); Lymphocytes % (Auto) 29.3 % (13.4-35.0); Mean Corpuscular HGB Conc 33 % (30-34); Mean Corpuscular Volume 83 fl (79-97); Monocytes # (Auto) 0.8 K/mm3 (0.0-0.8); Monocytes % (Auto) 6.7 % (0.0-7.3); Platelet Count 185 K/mm3 (140-440); Red Blood Count 5.39 M/mm3 (3.65-5.03); Red Cell Distribution Width 13.9 % (13.2-15.2)
[2018-12-15 05:47] LABS: INR 1.16 (0.87-1.13)
[2018-12-15 05:55] LABS: BUN/Creatinine Ratio 7; Blood Urea Nitrogen 4 mg/dL (7-17); Calcium 9.2 mg/dL (8.4-10.2); Hemolysis Index 5
[2018-12-15] MEDS ORDERED: WATER FOR IRRIG STERILE IR ONE (06:32)
[2018-12-15] MEDS ORDERED: WATER FOR IRRIG STERILE ONE (06:34)
[2018-12-15] MEDS ORDERED: K-DUR PO ONE (06:58)
[2018-12-15] MEDS ORDERED: NACL 0.9% 1000 ML 1,000 ML IV SCH (07:30)
[2018-12-15] MEDS: K-DUR PO SCH ×2 (08:10→09:45)
[2018-12-15] MEDS: PULMICORT IH SCH ×2 (08:31→20:13)
[2018-12-15] MEDS: BROVANA NEBU IH SCH ×2 (08:31→20:13)
[2018-12-15] MEDS ORDERED: NS/KCL 40MEQ 40 MEQ/1,000 ML BAG IV SCH (09:00)
[2018-12-15] MEDS: PROTONIX PO SCH (09:32)
[2018-12-15] MEDS: LOVENOX SUB-Q SCH (09:32)
[2018-12-15] MEDS: SODIUM CHLORIDE FLUSH SYRINGE 10 ML IV SCH ×2 (09:43→20:40)
--- NOTE | 2018-12-15 11:51 | Progress Note ---
Assessment and Plan Assessment and plan: 73 -year-old -[place] female with history of hypertension, diabetes 2, COPD, chronic constipation who presents to [facility] ED with c/o of diffuse abdominal pain and intermittent constipation for the last [address] abdomen and pelvis revealed punctate hypodensity in the lateral right hepatic lobe, several peripheral hypodensities in the spleen, some of these are somewhat wedge-shaped, right kidney is markedly atrophic, advanced atherosclerotic calcification is seen within the renal and mesenteric arterial trees. GI consulted. Will admit to [facility]ZA unit for further evaluation and treatment. Urinary tract infection - patient is on IV ceftriaxone - follow urine culture Acute Abdominal Pain, with persistent N/V - GI consulted, and EGD today, will follow the results - CT abdomen and pelvis negative - To be on clear liquid diet Chronic Constipation - Symptomatic management Hypokalemia - Repleted Hypertension - Continue clonidine patch DM2 - SSI COPD - Albuterol PRN and brivana DVT prophylaxis; on lovenox Disposition; per clinical course History Interval history: Patient seen and evaluated this morning, patient said she still has nausea and vomiting. Hospitalist Physical - Physical exam Narrative exam: Not in cardiopulmonary distress. The patient is obese. Vital signs as documented. Head exam is unremarkable. No scleral icterus . Neck is without jugular venous distension, thyromegaly, or carotid bruits. Lungs are clear to auscultation. Cardiac exam reveals regular rate and Rhythm. Abdominal exam reveals normal bowel sounds. Extremities are nonedematous and both femoral and pedal pulses are normal. 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 No focal weakness. - Constitutional Vitals: Temp Pulse Resp BP Pulse Ox 98.3 F 97 H 18 171/85 96 12/15/18 07:49 12/15/18 09:00 12/15/18 09:00 12/15/18 07:49 12/15/18 07:49 Results - Labs CBC & Chem 7: 12/15/18 05:14 12/15/18 10:50 Labs: Laboratory Last Values WBC 11.6 K/mm3 (4.5-11.0) H 12/15/18 05:14 RBC 5.39 M/mm3 (3.65-5.03) H 12/15/18 05:14 Hgb 14.7 gm/dl (10.1-14.3) H 12/15/18 05:14 Hct 44.9 % (30.3-42.9) H 12/15/18 05:14 MCV 83 fl (79-97) 12/15/18 05:14 MCH 27 pg (28-32) L 12/15/18 05:14 MCHC 33 % (30-34) 12/15/18 05:14 RDW 13.9 % (13.2-15.2) 12/15/18 05:14 Plt Count 185 K/mm3 (140-440) 12/15/18 05:14 Lymph % (Auto) 29.3 % (13.4-35.0) 12/15/18 05:14 [place] % (Auto) 6.7 % (0.0-7.3) 12/15/18 05:14 Eos % (Auto) 0.1 % (0.0-4.3) 12/15/18 05:14 Baso % (Auto) 0.5 % (0.0-1.8) 12/15/18 05:14 Lymph # 3.4 K/mm3 (1.2-5.4) 12/15/18 05:14 [place] # 0.8 K/mm3 (0.0-0.8) 12/15/18 05:14 Eos # 0.0 K/mm3 (0.0-0.4) 12/15/18 05:14 Baso # 0.1 K/mm3 (0.0-0.1) 12/15/18 05:14 Seg Neutrophils % 63.4 % (40.0-70.0) 12/15/18 05:14 Seg Neutrophils # 7.4 K/mm3 (1.8-7.7) 12/15/18 05:14 PT 14.5 Sec. (12.2-14.9) 12/15/18 05:14 INR 1.16 (0.87-1.13) H 12/15/18 05:14 Sodium 141 mmol/L (137-145) 12/15/18 05:14 Potassium 3.4 mmol/L (3.6-5.0) L D 12/15/18 10:50 Chloride 97.6 mmol/L (98-107) L 12/15/18 05:14 Carbon Dioxide 26 mmol/L (22-30) 12/15/18 05:14 20 mmol/L 12/15/18 05:14 BUN 4 mg/dL (7-17) L 12/15/18 05:14 0.6 mg/dL (0.7-1.2) L 12/15/18 05:14 Estimated GFR > 60 ml/min 12/15/18 05:14 7 % 12/15/18 05:14 Glucose 136 mg/dL (65-100) H 12/15/18 05:14 POC Glucose 130 (70-105) H 12/15/18 06:38 7.1 % (4-6) H 12/14/18 05:01 Calcium 9.2 mg/dL (8.4-10.2) 12/15/18 05:14 Magnesium 1.80 mg/dL (1.7-2.3) 12/15/18 05:14 0.90 mg/dL (0.1-1.2) 12/13/18 15:31 AST 26 units/L (5-40) 12/13/18 15:31 ALT 16 units/L (7-56) 12/13/18 15:31 128 units/L (35-129) 12/13/18 15:31 7.5 g/dL (6.3-8.2) 12/13/18 15:31 3.5 g/dL (3.9-5) L 12/13/18 15:31 0.9 % 12/13/18 15:31 34 units/L (13-60) 12/13/18 15:31 Yellow (Yellow) 12/13/18 17:01 Cloudy (Clear) 12/13/18 17:01 7.0 (5.0-7.0) 12/13/18 17:01 Ur Specific [place] 1.009 (1.003-1.030) 12/13/18 17:01 <15 mg/dl mg/dL (Negative) 12/13/18 17:01 Neg mg/dL (Negative) 12/13/18 17:01 Neg mg/dL (Negative) 12/13/18 17:01 Sm (Negative) 12/13/18 17:01 Neg (Negative) 12/13/18 17:01 Neg (Negative) 12/13/18 17:01 < 2.0 mg/dL (<2.0) 12/13/18 17:01 Ur Leukocyte Esterase Lg (Negative) 12/13/18 17:01 128.0 /HPF (0.0-6.0) H 12/13/18 17:01 11.0 /HPF (0.0-6.0) 12/13/18 17:01 U Epithel Cells (Auto) 10.0 /HPF (0-13.0) 12/13/18 17:01 Amorphous Crystals Few 12/13/18 17:01 Active Medications - Current Medications Current Medications: Generic Name Dose Route Start Last Admin Trade Name Freq PRN Reason Stop Dose Admin Acetaminophen 650 mg 12/13/18 22:34 Tylenol PO Q4H PRN Pain MILD(1-3)/Fever >100.5/TURK Albuterol 2.5 mg 12/14/18 00:25 Proventil IH Q4HRT PRN Shortness Of Breath Arformoterol Tartrate 15 mcg 12/14/18 08:00 12/15/18 08:31 Brovana Nebu IH 15 mcg Q12HRT MEGAN Administration Budesonide 0.5 mg 12/14/18 08:00 12/15/18 08:31 Pulmicort IH 0.5 mg Q12HRT MEGAN Administration Clonidine HCl 0.2 mg 12/14/18 01:00 12/14/18 04:26 Catapres-Tts Patch TD Not Given Fr MEGAN Dextrose 50 ml 12/14/18 00:08 D50w (25gm) Syringe IV PRN PRN Hypoglycemia Enoxaparin Sodium 40 mg 12/14/18 10:00 12/15/18 09:32 Lovenox SUB-Q 40 mg QDAY MEGAN Administration Hydralazine HCl 10 mg 12/14/18 00:08 12/15/18 03:42 Apresoline IV 10 mg Q4HR PRN Administration BP >160/100 Ceftriaxone Sodium 1 gm in 50 mls @ 100 mls/hr 12/14/18 10:00 12/14/18 10:50 Rocephin/Ns 1 Gm/50 Ml IV 100 mls/hr Q24HR MEGAN Administration Protocol Sodium Chloride 1,000 mls @ 50 mls/hr 12/15/18 07:30 Nacl 0.9% 1000 Ml IV DIRECT MEGAN Potassium Chloride/Sodium Chloride 40 meq in 1,000 mls @ 250 mls/hr 12/15/18 09:00 12/15/18 09:33 Ns/Kcl 40meq IV 250 mls/hr DIRECT MEGAN Administration Insulin Human Lispro 0 unit 12/14/18 06:00 12/15/18 06:44 Humalog SUB-Q Not Given Q6HR [facility] Protocol Metoclopramide HCl 10 mg 12/14/18 01:03 12/14/18 02:29 Reglan IV 10 mg Q6H PRN Administration Nausea And Vomiting Metoclopramide HCl 10 mg 12/14/18 12:00 12/15/18 08:13 Reglan IV 10 mg Q6H MEGAN Administration Ondansetron HCl 4 mg 12/14/18 01:04 Zofran IV Q4H PRN Nausea And Vomiting Pantoprazole Sodium 40 mg 12/14/18 18:00 12/15/18 09:32 Protonix PO 40 mg QDAY MEGAN Administration Sodium Chloride 10 ml 12/14/18 10:00 12/15/18 09:43 Sodium Chloride Flush Syringe 10 Ml IV 10 ml BID MEGAN Administration Sodium Chloride 10 ml 12/13/18 22:34 Sodium Chloride Flush Syringe 10 Ml IV PRN PRN LINE FLUSH Nutrition/Malnutrition Assess - Dietary Evaluation Nutrition/Malnutrition Findings: Nutrition Notes Start: 12/14/18 20:51 Freq: Status: Active Protocol: Document 12/14/18 20:51 RM (Rec: 12/14/18 21:01 [email or web address]) Nutrition Notes Need for Assessment generated from: MST Initial or Follow up Assessment Current Diagnosis COPD,Diabetes,Hypertension Other Pertinent Diagnosis TIA,UTI, Dysphagia, Dysphasia Current Diet Clear liquid Labs/Tests A1c 7.1 Pertinent Medications Reviewed Height 5 ft 6 in Weight 90.8 kg Usual Body Weight 106 kg [place] Body Weight (kg) 59.09 BMI 32.3 Weight change and time frame 14.3% wt loss X 1 1/2 months Subjective/Other Information Screened for malnutrition, chewing difficulty, and skin risk. [place] [address] earlier for endoscopy. Clear liquid diet ordered later today. 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 Admitted to N/V. Stated that she has only eaten jello here. Denied chewing difficulty. Stated UBW was 234 lbs in October. No temporal or orbital wasting . 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 No Is Patient Ambulatory and/or Out of Bed No REE-([facility]-confined to bed) 1727.520 Kcal/Kg value to use for calculation 16 Approximate Energy Requirements Using 1453 kcal/Kg Calculation Used for Recommendations Kcal/kg Additional Notes Protein Needs: 75-90g (1-1.2g/ kg 75kg adjBW) Fluid Needs: 1 ml/kcal Nutrition Intervention Change Diet Order: Advance diet when medically able Add Supplement/Snack (indicate name/kcal Ensure clear 1 daily /protein ) Provides kCal: 240 Provides Protein (gm) 8 Goal #1 Diet advancement Anticipated Discharge Needs: Unable to determine at this time Follow-Up By: 12/18/18 Additional Comments Follow for diet advancement, PO and ONS intakes
--- NOTE | 2018-12-15 12:23 | Anesthesia Day of Surgery ---
Anesthesia Day of Surgery - Day of Surgery Patient Examined: Yes Patient H&P Reviewed: Yes Patient is NPO: Yes
--- NOTE | 2018-12-15 12:23 | Anesthesia Consultation ---
Anesthesia Consult and Med Hx Date of service: 12/15/18 - Airway Anesthetic Teeth Evaluation: Edentulous ROM Head & Neck: Adequate Mental/Hyoid Distance: Adequate Mallampati Class: Class III Intubation Access Assessment: Possibly Difficult - Pulmonary Exam CTA: Yes - Cardiac Exam Cardiac Exam: RRR - Pre-Operative Health Status ASA Pre-Surgery Classification: ASA3 Proposed Anesthetic Plan: MAC - Pulmonary Hx Asthma: Yes COPD: Yes Home Oxygen Therapy: Yes (2L home O2 at night and with exertion) - Cardiovascular System Hx Hypertension: Yes Hx Heart Attack/AMI: No Hx Percutaneous Transluminal Coronary Angioplasty (PTCA): No Hx Cardia Arrhythmia: No Hx Peripheral Vascular Disease: Yes (PAD) - Central Nervous System CVA: Yes (hx TIA) Hx Back Pain: Yes - Gastrointestinal Hx Gastroesophageal Reflux Disease: No - Endocrine Hx Renal Disease: No Hx Liver Disease: No Hx Insulin Dependent Diabetes: Yes Hx Thyroid Disease: No - Hematic Hx Anemia: Yes - Other Systems Hx Obesity: Yes - Additional Comments Anesthesia Medical History Comments: No hx anesthetic complications.
--- NOTE | 2018-12-15 12:26 | Post Operative Note ---
Pre-op diagnosis: nausea, abdominal pain, weight loss Post-op diagnosis: same Findings: EGD: hiatal hernia - multiple ulcers (6-9 mm) scattered stomach body (bx's) - gastritis (bx's) - mild duodenitis (bx's) Colon: mild diverticulosis -random bx's - internal hemorrhoids Plan: f/u bx's - PPI qd, Carafate susp qid - advance diet - if stable in am ok to dc/ from GI standpoint Procedure: EGD/colonoscopy Anesthesia: MAC Surgeon: EARNESTINE GAMINO Estimated blood loss: none Pathology: list Specimen disposition: to lab Condition: stable Disposition: floor
[2018-12-15] MEDS ORDERED: NACL 0.9% 1000 ML 1,000 ML ONE (12:47)
--- NOTE | 2018-12-15 13:46 | Operative Report ---
PROCEDURE: Colonoscopy with cold biopsies. INDICATIONS: 1. Abdominal pain. 2. Weight loss. MEDICATIONS: Propofol per AFTER SCHOOL COORDINATOR. COMPLICATIONS: None. DESCRIPTION OF PROCEDURE: The patient brought to procedure suite. The patient had the procedure discussed with her at length. All risks, complications, and benefits discussed, which the patient signed for the procedure to be performed. The patient was placed in left lateral decubitus position. Rectal exam performed prior to insertion of the scope. After adequate sedation medication as above, scope was inserted into the rectum and brought to the level of the cecum. Ileocecal valve, appendiceal orifice and cecal strap were adequately visualized. Colonoscope was then removed and mucosa of colon visualized. Prep quality for this procedure was fair. The patient's vital signs remained stable throughout the procedure. FINDINGS: There were no mass, lesions or polyps noted during this procedure. There are few ascending colon and sigmoid diverticula noted, which were small to medium in size. Retroflexion was performed in the rectum, showed small internal hemorrhoids. Random biopsies given change in bowel habits were taken. The patient tolerated the procedure well. No complications during the procedure. IMPRESSION: 1. Diverticulosis. 2. Internal hemorrhoids. 3. Random biopsies of the colon taken and sent to pathology. RECOMMENDATIONS: 1. Follow up biopsy results. 2. High fiber diet. 3. Advance diet. 4. If stable in a.m. and tolerating p.o., okay to discharge from GI standpoint. JOB# [id number] [facility]
--- NOTE | 2018-12-15 13:53 | Operative Report ---
PROCEDURE: EGD with cold biopsy. INDICATIONS: 1. Nausea, vomiting. 2. Abdominal pain. 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 COMPLICATIONS: None. DESCRIPTION OF PROCEDURE: The patient brought to procedure suite. The patient had procedure discussed with her at length. All risks, complications, and benefits discussed after which the patient signed for the procedure performed. The patient was placed in left lateral decubitus position. Mouth block was placed in the patient's oral cavity. After adequate sedation medication as above, endoscope was placed in the mouth and brought to the level of the second portion of duodenum. Retroflexion view performed. The patient's vital signs remained stable throughout the procedure. FINDINGS: There was noted to be an irregular Z line, probably from acid reflux noted 38 cm from the gums. Biopsies were taken and sent to pathology. Medium hiatal hernia at GE junction. There were multiple approximately 8-10 scattered ulcers noted throughout the gastric body. These were 6-10 mm in size. These were mainly white base and superficial. There was some mild erythema. Biopsies were taken these ulcers and pathology. Mild antral gastritis noted. Biopsies were taken and sent to pathology. Mild duodenitis noted in duodenal bulb with biopsies taken and sent to pathology. Remaining endoscopy otherwise appeared to be normal. Retroflexion view performed in the stomach showed no other pathology other than noted above. The patient tolerated the procedure well. No complications noted during the procedure. IMPRESSIONS: 1. Hiatal hernia. 2. Irregular Z line, biopsies performed. 3. Otherwise, normal esophagus. 4. Ulcers throughout the gastric body with no bleeding stigmata with biopsies taken and sent to pathology. 5. Gastritis, biopsies performed. 6. Duodenitis, biopsies performed. RECOMMENDATIONS: 1. Follow up biopsy results. 2. Stool for H. pylori, if positive, we will treat. 3. PPI daily. 4. Carafate suspension q.i.d. 5. Diet as tolerated. 6. Follow further recommendation based on colonoscopy results. JOB# [id number] [facility]
[2018-12-15] MEDS: ROCEPHIN/NS 1 GM/50 ML 1 GM/50 ML BAG IV SCH (16:59)
[2018-12-15] MEDS: CARAFATE PO SCH ×2 (16:59→19:09)
[2018-12-16] MEDS: HumaLOG SUB-Q SCH ×3 (00:04→12:26)
[2018-12-16] MEDS: CARAFATE PO SCH ×3 (00:12→12:34)
[2018-12-16] MEDS: REGLAN IV SCH ×3 (00:14→13:38)
[2018-12-16] MEDS: APRESOLINE IV PRN ×2 (02:44→15:07)
[2018-12-16] MEDS: CATAPRES-TTS PATCH TD SCH (02:51)
[2018-12-16] MEDS: PULMICORT IH SCH (07:38)
[2018-12-16] MEDS: BROVANA NEBU IH SCH (07:38)
[2018-12-16] MEDS: ROCEPHIN/NS 1 GM/50 ML 1 GM/50 ML BAG IV SCH (09:49)
[2018-12-16] MEDS: LOVENOX SUB-Q SCH (09:49)
[2018-12-16] MEDS: SODIUM CHLORIDE FLUSH SYRINGE 10 ML IV SCH (09:49)
[2018-12-16] MEDS: PROTONIX PO SCH (09:50)
[2018-12-16 14:43] VITALS: BP 189/88
--- NOTE | 2018-12-16 15:15 | Discharge Summary ---
Providers - Providers Date of Admission: 12/13/18 22:34 Attending physician: MARY JO GO MD 12/13/18 20:29 Consult to Physician [CONS] Stat Comment: Consulting Provider: JOON RIVERA Physician Instructions: Reason For Exam: dysphagia 12/15/18 00:01 Speech Therapy Evaluation and Treat [CONS] Routine Reason For Exam: dysphagia Primary care physician: DRAGAN PAPPAS Hospitalization Condition: Stable Procedures: EGD EGD: hiatal hernia - multiple ulcers (6-9 mm) scattered stomach body (bx's) - gastritis (bx's) - mild duodenitis (bx's) Colon: mild diverticulosis -random bx's - internal hemorrhoids Plan: f/u bx's - PPI qd, Carafate susp qid - advance diet - if stable in am ok to dc/ from GI standpoint Hospital course: 73 -year-old -[place] female with history of hypertension, diabetes 2, COPD, chronic constipation who presents to [facility] ED with c/o of diffuse abdominal pain and intermittent constipation for the last [address] abdomen and pelvis revealed punctate hypodensity in the lateral right hepatic lobe, several peripheral hypodensities in the spleen, some of these are somewhat wedge-shaped, right kidney is markedly atrophic, advanced atherosclerotic calcification is seen within the renal and mesenteric arterial trees. GI consulted. Will admit to [facility] unit for further evaluation and treatment. Urinary tract infection ruled out, U Cx neg Acute Abdominal Pain, with persistent N/V EGD showed, hiatal hernia, - multiple ulcers (6-9 mm) scattered stomach body (bx's), - gastritis (bx's) and - mild duodenitis (bx's), placed on PPI and carafate Chronic Constipation -bowel regimen Hypokalemia - Repleted Hypertension Bp meds DM2 - SSI COPD - Albuterol PRN and brovana DVT prophylaxis; on lovenox Disposition: TO HOME OR SELFCARE Time spent for discharge: 33 mins Core Measure Documentation - Palliative Care Palliative Care/ Comfort Measures: Not Applicable - Core Measures Any of the following diagnoses?: none Exam - Constitutional Vitals: Temp Pulse Resp BP Pulse Ox 98.3 F 109 H 18 189/88 94 12/16/18 13:39 12/16/18 15:07 12/16/18 13:39 12/16/18 15:07 12/16/18 13:39 General appearance: Present: no acute distress, well-nourished - EENT Eyes: Present: PERRL ENT: hearing intact, clear oral mucosa - Neck Neck: Present: supple, normal ROM - Respiratory Respiratory effort: normal Respiratory: bilateral: CTA - Cardiovascular Heart Sounds: Present: S1 & S2. Absent: rub, click - Extremities Extremities: pulses symmetrical, No edema Peripheral Pulses: within normal limits - Abdominal General gastrointestinal: Present: soft, non-tender, non-distended, normal bowel sounds Female genitourinary: Present: normal - Integumentary Integumentary: Present: clear, warm, dry - Musculoskeletal Musculoskeletal: gait normal, strength equal bilaterally - Psychiatric Psychiatric: appropriate mood/affect, intact judgment & insight - Neurologic Neurologic: CNII-XII intact, moves all extremities Plan Follow up with: DRAGAN PAPPAS MD [Primary Care Provider] - 3-5 Days Prescriptions: Sucralfate [Carafate] 1 gm PO Q6HR 30 Days oral.liqd Pantoprazole [Protonix TAB] 40 mg PO QDAY #30 tablet
--- NOTE | 2018-12-16 16:50 | Gastroenterology Progress Note ---
Assessment and Plan Clinically improving, continue PPI and safe for discharge from GI standpoint with outpatient followup as long as tolerates diet. - Patient Problems (1) Vomiting Current Visit: Yes Status: Acute Subjective Date of service: 12/16/18 Principal diagnosis: Abd pain, N/V Interval history: Patient reports symptoms improving Objective - Constitutional Vitals: Temp Pulse Resp BP Pulse Ox 98.3 F 109 H 18 189/88 94 12/16/18 13:39 12/16/18 15:07 12/16/18 13:39 12/16/18 15:07 12/16/18 13:39 General appearance: no acute distress - EENT ENT: hearing intact - Respiratory Respiratory: bilateral: CTA - Cardiovascular Rhythm: regular - Gastrointestinal General gastrointestinal: Present: soft - Labs CBC & Chem 7: 12/15/18 05:14 12/15/18 10:50 Labs: Laboratory Results - last 24 hr 12/15/18 12/16/18 12/16/18 19:32 00:09 05:40 POC Glucose 120 H 86 120 H 12/16/18 12:23 POC Glucose 105
[2018-12-16] MEDS ORDERED: NORVASC PO SCH (17:00)
[2018-12-16] MEDS ORDERED: LASIX PO SCH (17:00)
[2018-12-16] MEDS ORDERED: BROVANA NEBU IH SCH (22:00)
[2018-12-17] MEDS ORDERED: METOPROLOL SU PO SCH (10:00)
[2018-12-17] MEDS ORDERED: HCTZ PO SCH (10:00)
[2018-12-17] MEDS ORDERED: ELIQUIS PO SCH (10:00)
[2018-12-17] MEDS ORDERED: TOPROL XL PO SCH (10:00)
[2018-12-17] MEDS ORDERED: HYDROCHLOROTHIAZ PO SCH (10:00)
== END 2018-12-16 18:20 | disposition home or self-care (01) | DRG 384 ==
LOC: ED 14:02 → 2B-ACE 22:34
PROVIDERS: ADMIT Internal Medicine; ATTEND Internal Medicine
PROC: 0DB98ZX Excision of Duodenum, Via Natural or Artificial Opening Endoscopic, Diagnostic (ICD-10-PCS; principal; 2018-12-15)
PROC: 0DB68ZX Excision of Stomach, Via Natural or Artificial Opening Endoscopic, Diagnostic (ICD-10-PCS; 2018-12-15)
PROC: 0DBE8ZX Excision of Large Intestine, Via Natural or Artificial Opening Endoscopic, Diagnostic (ICD-10-PCS; 2018-12-15)
DX: K25.9 Gastric ulcer, unspecified as acute or chronic, without hemorrhage or perforation (principal); N39.0 Urinary tract infection, site not specified; K29.70 Gastritis, unspecified, without bleeding; K29.80 Duodenitis without bleeding; K57.30 Diverticulosis of large intestine without perforation or abscess without bleeding; K64.8 Other hemorrhoids; E87.6 Hypokalemia; R13.10 Dysphagia, unspecified; I16.0 Hypertensive urgency; K59.00 Constipation, unspecified; I10 Essential (primary) hypertension; J44.9 Chronic obstructive pulmonary disease, unspecified; E11.51 Type 2 diabetes mellitus with diabetic peripheral angiopathy without gangrene; E86.0 Dehydration; K59.09 Other constipation; N26.1 Atrophy of kidney (terminal); N28.89 Other specified disorders of kidney and ureter; E66.9 Obesity, unspecified; K44.9 Diaphragmatic hernia without obstruction or gangrene; Z79.01 Long term (current) use of anticoagulants; Z86.718 Personal history of other venous thrombosis and embolism; Z68.32 Body mass index [BMI] 32.0-32.9, adult; Z86.73 Personal history of transient ischemic attack (TIA), and cerebral infarction without residual deficits
CPT/HCPCS: 36415; 74018; 74019; 74177; 80048; 80053; 81001; 82962; 83036; 83690; 83735; 84132; 85025; 85610; 87040; 87086; 88305; 88342; 94640; G0378; J0360; J0696; J1170; J1650; J1815; J2405; J2765; J3480; J7030; J7050; Q9967